=== PATIENT | female | born 1975 | race Caucasian/White ===

== ENCOUNTER 2017-08-07 07:57 | Emergency (ER) | payer BC ==
--- NOTE | 2017-08-07 08:29 | UC ---
Throat Pain/Nasal Gabriel HPI - HPI Summary HPI Summary: Patient presents with complaints of three day onset sore throat. She states she was with her nephew who has been diagnosed with strep throat. - History of Current Complaint Chief Complaint: UCRespiratory Stated Complaint: SORE THROAT Time Seen by Provider: 08/07/17 08:18 Hx Obtained From: Patient Hx Last Menstrual Period: 08/07/17 Onset/Duration: Gradual Onset, Lasting Days Severity: Moderate Pain Intensity: 5 Cough: None Associated Signs & Symptoms: Positive: Sinus Discomfort, Nasal Discharge - Epiglottits Risk Factors Epiglottis Risk Factors: Negative - Allergies/Home Medications Allergies/Adverse Reactions: Allergies Allergy/AdvReac Type Severity Reaction Status Date / Time droperidol AdvReac See Comment Verified 08/07/17 08:14 Home Medications: Home Medications Ibuprofen TAB* [Advil TAB*] 400 mg PO Q6H PRN 08/07/17 [History Confirmed ] Lactobacillus Acidophilus [Probiotic Acidophilus Sup] 1 tab PO DAILY 08/07/17 [ History Confirmed 08/07/17] PMH/Surg Hx/FS Hx/Imm Hx Previously Healthy: Yes - Surgical History Surgical History: Yes Surgery Procedure, Year, and Place: pelvis fx repair 2001, uterine polyp removal - Family History Known Family History: Positive: Hypertension - Social History Occupation: Employed Full-time Lives: Alone Alcohol Use: Rare Substance Use Type: None Smoking Status (MU): Never Smoked Tobacco Review of Systems Constitutional: Negative Skin: Negative Eyes: Negative ENT: Sore Throat, Nasal Discharge, Sinus Congestion Respiratory: Negative Cardiovascular: Negative Gastrointestinal: Negative Genitourinary: Negative Motor: Negative Neurovascular: Negative Musculoskeletal: Negative Neurological: Negative Psychological: Negative Is Patient Immunocompromised?: No All Other Systems Reviewed And Are Negative: Yes Physical Exam Triage Information Reviewed: Yes Appearance: Ill-Appearing Vital Signs: Initial Vital Signs Temp 99.2 F 08/07/17 08:06 Pulse 72 08/07/17 08:06 Resp 14 08/07/17 08:06 BP 109/76 08/07/17 08:06 Pulse Ox 99 08/07/17 08:06 Vital Signs Reviewed: Yes Eye Exam: Normal ENT: Positive: Pharyngeal erythema, Nasal congestion, Uvula midline Neck exam: Normal Neck: Positive: 1 Respiratory Exam: Normal Cardiovascular Exam: Normal Abdominal Exam: Normal Musculoskeletal Exam: Normal Neurological Exam: Normal Skin Exam: Normal Throat Pain/Nasal Course/Dx - Course Course Of Treatment: Patient presents with clinical evidence of srep throat and will be treated with penvk. - Differential Dx/Diagnosis Differential Diagnosis/HQI/PQRI: Pharyngitis, Other - strep throat Provider Diagnoses: strep throat Discharge - Discharge Plan Condition: Stable Disposition: HOME Patient Education Materials: Strep Throat (ED) Referrals: Mary Addison MD [Primary Care Provider] -
== END 2017-08-07 08:38 | disposition home or self-care (01) ==
LOC: UCEAST 07:57
DX: J02.0 Streptococcal pharyngitis (principal)
CPT/HCPCS: 99202; G0463

== ENCOUNTER 2019-02-17 19:20 | Observation (INO) | payer BC ==
[2019-02-17] MEDS ORDERED: Ketorolac INJ* 30 MG/ML 1 ML VIAL IV ONE (19:59)
[2019-02-17] MEDS ORDERED: Ondansetron INJ* 2 MG/ML VIAL IV ONE (19:59)
[2019-02-17] MEDS ORDERED: NS 0.9% 1000 ML** 1,000 ML IV ONE (19:59)
--- NOTE | 2019-02-17 20:01 | ED ---
Abdominal Pain/Female - HPI Summary HPI Summary: This pt is a 43 Y/O F presenting to [facility] with a CC of abdominal pain located in her RUQ and is rated an 8/10 in severity. She states that the onset occurred during the end of her shift at work. She had N/V and diaphoresis while at work which worsened after lunch around 1230. She denies any cough, fevers, urinary symptoms, and diarrhea. She states that eating her lunch increased her severity. She denies any alleviation. She states that she has had similar symptoms 11 years ago. - History of Current Complaint Chief Complaint: EDAbdPain Stated Complaint: ABD PAIN AND NAUSEA PER PT Time Seen by Provider: 02/17/19 19:46 Hx Obtained From: Patient Hx Last Menstrual Period: 08/07/17 Onset/Duration: Sudden Onset, Lasting Hours, Worse Since - 1230 Timing: Constant Severity Initially: Moderate Severity Currently: Severe Pain Intensity: 8 Pain Scale Used: 0-10 Numeric Location: Discrete At: RUQ Radiates: No Aggravating Factor(s): Food Alleviating Factor(s): Nothing Associated Signs and Symptoms: Positive: Diaphoresis, Nausea, Vomiting. Negative: Fever, Cough, Urinary Symptoms, Diarrhea Allergies/Adverse Reactions: Allergies Allergy/AdvReac Type Severity Reaction Status Date / Time droperidol AdvReac See Comment Verified 02/17/19 19:24 PMH/Surg Hx/FS Hx/Imm Hx Previously Healthy: Yes GI History: Denies: Hx Gall Bladder Disease Sensory History: Denies: Hx Contacts or Glasses Opthamlomology History: Denies: Hx Contacts or Glasses - Surgical History Surgical History: Yes Surgery Procedure, Year, and Place: pelvis fx repair 2001, uterine polyp removal Infectious Disease History: Yes Infectious Disease History: Denies: Traveled Outside the [place] in Last 30 Days - Family History Known Family History: Positive: Hypertension - Social History Alcohol Use: Rare Hx Substance Use: No Substance Use Type: Reports: None Hx Tobacco Use: No Smoking Status (MU): Never Smoked Tobacco Review of Systems Positive: Skin Diaphoresis. Negative: Fever Negative: Cough Positive: Abdominal Pain - RUQ, Vomiting, Nausea. Negative: Diarrhea Genitourinary: Negative All Other Systems Reviewed And Are Negative: Yes Physical Exam - Summary Physical Exam Summary: Constitutional: Well-developed, Well-nourished, Alert. (-) Distressed Skin: Warm, Dry HENT: Normocephalic; Atraumatic Eyes: Conjunctiva normal Neck: Musculoskeletal ROM normal neck. (-) JVD, (-) Stridor, (-) Tracheal deviation Cardio: Rhythm regular, rate normal, Heart sounds normal; Intact distal pulses; The pedal pulses are 2+ and symmetric. Radial pulses are 2+ and symmetric. (-) Murmur Pulmonary/Chest wall: Effort normal. (-) Respiratory distress, (-) Wheezes, (-) Rales Abd: Soft, Epigastric and RUQ tenderness, (-) Distension, (-) Guarding, (-) Rebound, positive murphys sign Musculoskeletal: (-) Edema Lymph: (-) Cervical adenopathy Neuro: Alert, Oriented x3 Psych: Mood and affect Normal Triage Information Reviewed: Yes Vital Signs On Initial Exam: Initial Vitals Temp Pulse Resp BP Pulse Ox 97.6 F 79 15 132/84 100 02/17/19 19:23 02/17/19 19:23 02/17/19 19:23 02/17/19 19:23 02/17/19 19:23 Vital Signs Reviewed: Yes Diagnostics - Vital Signs Vital Signs Temp Pulse Resp BP Pulse Ox 02/17/19 19:23 97.6 F 79 15 132/84 100 - Laboratory Result Diagrams: 02/18/19 04:41 02/18/19 04:41 Lab Statement: Any lab studies that have been ordered have been reviewed, and results considered in the medical decision making process. - Ultrasound Gallbladder US Ultrasound Interpretation Completed By: Radiologist Summary of Ultrasound Findings: There are echogenic calculi in the gallbladder lumen consistent with. cholelithiasis with no abnormal gallbladder wall thickening with possible trace pericholecystic fluid and positive sonographic Villegas sign and therefore suspicious for acute cholecystitis. ED Physician has reviewed this report. Re-Evaluation - Re-Evaluation First Eval Re-Evaluation Time: 21:21 Change: Unchanged Comment: Pt states that she still has positive RUQ pain. Abdominal Pain Fem Course/Dx - Course Course Of Treatment: Patient presented today with right upper quadrant pain, chills, vomiting. Patient had blood performed which showed a leukocytosis of 11. Patient had normal LFTs and lipase. Patient had an ultrasound which showed gallstones, a small amount of pericholecystic fluid. Given patient's leukocytosis, positive Villegas sign, gallstones, pericholecystic fluid, surgery was consultation for possible acute cholecystitis. They recommended IV antibiotics and admission to the hospital. - Diagnoses Provider Diagnoses: Acute cholecystitis - Provider Notifications Discussed Care Of Patient With: Dilip Angelo Time Discussed With Above Provider: 21:33 Instructed by Provider To: Admit As Inpatient - Dr. Angelo, surgery, was informed of the pt's current condition. He stated that he will evaluate the pt in the ED and recommended giving the pt ABX treatment until then. Dr. Angelo decided to admit the pt to [facility] at 2200 for further evaluations. Admit/Transition Orders Completed By ED Provider: Yes Discharge ED - Sign-Out/Discharge Documenting (check all that apply): Patient Departure - admitted Patient Received Moderate/Deep Sedation with Procedure: No - Discharge Plan Condition: Good Disposition: ADMITTED TO [facility] - Billing Disposition and Condition Condition: GOOD Disposition: Admitted to [facility] - Attestation Statements Document Initiated by Ranjana: Yes Documenting Scribe: Adarsh Jaime Provider For Whom Ranjana is Documenting (Include Credential): Greg Talamantes MD Scribe Attestation: Adarsh Khan, scribed for Greg Talamantes MD on 02/18/19 at 1009. Scribe Documentation Reviewed: Yes Provider Attestation: The documentation as recorded by the Adarsh macdonald accurately reflects the service I personally performed and the decisions made by me, Greg Talamantes MD Status of Scribe Document: Viewed
[2019-02-17 20:19] LABS: ABS Eosinophils 0.1 10^3/ul (0-0.6); ABS Lymphocytes 1.3 10^3/ul (1.0-4.8); ABS Monocytes 0.5 10^3/ul (0-0.8); ABS Neutrophils 9.2 10^3/ul (1.5-7.7); Eosinophil % 0.6 %; Hematocrit 39 % (35-47); Hemoglobin 13.1 g/dL (12.0-16.0); Lymphocyte % 11.5 %; Mean Corpuscular HGB Conc 34 g/dL (31-36); Mean Corpuscular Hemoglobin 30 pg (27-31); Mean Corpuscular Volume 90 fL (80-97); Mean Platelet Volume 8.7 fL (7.4-10.4); Platelet Count 246 10^3/uL (150-450); Red Cell Distribution Width 13 % (10-15)
[2019-02-17 20:23] LABS: Urine Appearance Clear; Urine Bacteria Absent (Absent); Urine Bilirubin Negative (Negative); Urine Blood Negative (Negative); Urine Color Yellow; Urine Glucose Negative (Negative); Urine Ketones 1+ (Negative); Urine Nitrite Negative (Negative); Urine Protein Negative (Negative); Urine Red Blood Cell Trace(0-2/hpf) (Absent); Urine Specific Gravity 1.023 (1.010-1.030); Urine Squamous Epithelial Cell Present (Absent); Urine Urobilinogen Negative (Negative); Urine White Blood Cell Trace(0-5/hpf) (Absent)
[2019-02-17 20:34] LABS: ALT 8 U/L (7-52); AST 11 U/L (13-39); Albumin 4.5 g/dL (3.2-5.2); Albumin/Globulin Ratio 1.6 (1-3); Alkaline Phosphatase 53 U/L (34-104); Anion Gap 6 mmol/L (2-11); BUN/Creatinine Ratio 21.8 (8-20); Blood Urea Nitrogen 17 mg/dL (6-24); C Reactive Protein < 1.00 mg/L (<8.01); CO2 Carbon Dioxide 27 mmol/L (22-32); Calcium 9.6 mg/dL (8.6-10.3); Chloride 105 mmol/L (101-111); EGFR African American 97.5 (>60); EGFR Non-African American 80.6 (>60); Globulin 2.9 g/dL (2-4); Glucose 125 mg/dL (70-100); Potassium 4.2 mmol/L (3.5-5.0); Sodium 138 mmol/L (135-145); Total Protein 7.4 g/dL (6.4-8.9)
[2019-02-17 20:39] LABS: HCG Pregnancy < 0.60 mIU/mL
[2019-02-17] MEDS ORDERED: Piperacillin/Tazobac ADVAN(*) 3.375 GM in NS 0.9% 100 ML* 100 ML IVPB ONE (21:32)
[2019-02-17] MEDS ORDERED: Ondansetron INJ* 2 MG/ML VIAL IV PRN (22:04)
[2019-02-17] MEDS ORDERED: Ketorolac INJ* 30 MG/ML 1 ML VIAL IV PRN (22:04)
[2019-02-17] MEDS ORDERED: NS 0.9% 1000 ML** 1,000 ML IV SCH (22:15)
--- NOTE | 2019-02-18 00:57 | HP ---
CC: [facility]; Dr. Mary Addison, [facility]* HISTORY AND PHYSICAL: DATE OF ADMISSION: 02/17/19 CHIEF COMPLAINT: Right upper quadrant abdominal pain and gallstones. HISTORY OF PRESENT ILLNESS: Ms. Anastasiya Miramontes is a healthy 43-year-old woman, who around 1:30 this afternoon after eating rather a large lunch developed some severe epigastric right upper quadrant abdominal pain, radiating around to the right flank area. This was associated with some nausea without vomiting. She has some diaphoresis as well, but no vomiting. She has no known jaundice and she had no true shakes or chills. She did not feel that she had a fever. This pain worsened and she presented to the emergency room several hours later. She was noted to be afebrile with essentially stable vital signs. She was noted to have tenderness in the epigastrium and right upper quadrant, but no generalized abdominal discomfort. Laboratory values include a white blood cell count of 11,000. Electrolytes, BUN and creatinine were all within normal limits. Liver transaminases, C- reactive protein, and lipase were all within normal limits. She underwent an ultrasound of the gallbladder. I did review these images. This showed multiple echogenic calculus in the gallbladder consistent with cholelithiasis, but no gallbladder wall thickening. There was some possible trace pericholecystic fluid and a positive sonographic Villegas's sign. This was felt suspicious for acute cholecystitis. Her pain has persisted despite receiving Toradol. She refused any narcotics. Surgical consultation was obtained. PAST MEDICAL HISTORY: Factor V Leiden deficiency, penetrance unknown. She is not on any anticoagulation, has not formerly seen a forester aide in many years. PAST SURGICAL HISTORY: 1. Pelvic fracture repair in 2001. 2. Uterine polyp removal laparoscopically. MEDICATIONS: Unremarkable. SOCIAL HISTORY: She denies use of alcohol or tobacco. 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 REVIEW OF SYSTEMS: Cerebrovascular: No dizziness or visual disturbances. Cardiovascular: No chest pain, shortness of breath, or pulmonary issues. Cardiac: No chest pain. GI: No chronic abdominal discomfort. She has not had pain that had been typical of this in the past. She never had an ultrasound before. : No urgency or hematuria. PHYSICAL EXAMINATION GENERAL: She is a well-developed, slender female appears to be in no apparent distress. She is awake, alert, conversant, and very pleasant. VITAL SIGNS: She is afebrile. Pulse 85, blood pressure 118/77. HEENT: Sclerae anicteric. Her oral mucosa is dry. LUNGS: Clear to auscultation with normal respiratory effort. HEART: Regular rate and rhythm without murmur, rubs, or gallops. ABDOMEN: Soft and nondistended. She has some very difficult to see laparoscopic incision in the lower abdomen. There are no hernias. She has tenderness in the epigastrium and right upper quadrant with some voluntary guarding, but no peritoneal irritation. There is no generalized abdominal pain. PSYCHIATRIC: She is awake, alert and oriented x3. She has normal judgment and insight. IMPRESSION: Persistent epigastric and right upper quadrant abdominal pain with a mild elevation of white blood cell count. An ultrasound confirms gallstones with possibilities of pericholecystic fluid. Her pain is persistent now for 9 or 10 hours and not improving with nonsteroidal pain medicine. PLAN: At this point, it is difficult to determine if this is developing into acute calculus cholecystitis or more prolonged episode of biliary colic but the possibility of fluid around the gallbladder is somewhat worrisome. I discussed options with her including admission to the hospital with initiation of IV antibiotics and if her pain persists, we will plan laparoscopic cholecystectomy tomorrow. She would like to try to avoid surgery at this time, which is certainly understandable, but I think discharging home on oral antibiotics with her level of discomfort and its duration will result in her returning to the emergency room in the next 24 to 48 hours with a more progressed presentation of acute cholecystitis. Through our discussion, plan will be: 1. Admission to the surgical floor here. 2. I will start IV Zosyn and IV fluids. 3. We will keep her n.p.o. after midnight. 4. Laboratory values will be repeated in the morning. If her pain is resolved and her white blood cell count is normalized and she has no fever, we will consider discharge on oral antibiotics with close followup in the office. She is comfortable with this plan and she will be allowed clear liquids this evening. [id number]/[facility] #: [id number] [facility]ITAL[facility]
[2019-02-18] MEDS: Piperacillin/Tazobactam VIAL*) 3.375 GM in NS 0.9% 100 ML* 100 ML IVPB SCH ×2 (02:11→10:53)
[2019-02-18 05:19] LABS: ABS Eosinophils 0.1 10^3/ul (0-0.6); ABS Lymphocytes 1.9 10^3/ul (1.0-4.8); ABS Monocytes 0.5 10^3/ul (0-0.8); ABS Neutrophils 7.1 10^3/ul (1.5-7.7); Eosinophil % 1.1 %; Hematocrit 36 % (35-47); Hemoglobin 12.6 g/dL (12.0-16.0); Lymphocyte % 19.9 %; Mean Corpuscular HGB Conc 35 g/dL (31-36); Mean Corpuscular Hemoglobin 31 pg (27-31); Mean Corpuscular Volume 89 fL (80-97); Mean Platelet Volume 8.6 fL (7.4-10.4); Nucleated Red Blood Cells % 0.1; Platelet Count 236 10^3/uL (150-450); Red Blood Count 4.05 10^6 /uL (3.70-4.87); Red Cell Distribution Width 13 % (10-15); White Blood Count 9.6 10^3/uL (3.5-10.8)
[2019-02-18 05:40] LABS: ALT 6 U/L (7-52); AST 10 U/L (13-39); Albumin 3.6 g/dL (3.2-5.2); Albumin/Globulin Ratio 1.6 (1-3); Alkaline Phosphatase 40 U/L (34-104); Anion Gap 5 mmol/L (2-11); BUN/Creatinine Ratio 15.6 (8-20); Blood Urea Nitrogen 12 mg/dL (6-24); C Reactive Protein < 1.00 mg/L (<8.01); CO2 Carbon Dioxide 26 mmol/L (22-32); Calcium 9.1 mg/dL (8.6-10.3); Chloride 108 mmol/L (101-111); EGFR Non-African American 81.8 (>60); Globulin 2.3 g/dL (2-4); Glucose 89 mg/dL (70-100); Indirect Bilirubin 0.7 mg/dL (0.3-1.0); Potassium 3.8 mmol/L (3.5-5.0); Sodium 139 mmol/L (135-145); Total Protein 5.9 g/dL (6.4-8.9)
[2019-02-18 09:05] VITALS: BP 107/61
--- NOTE | 2019-02-18 09:05 | PN ---
Progress Note - Progress Note Date of Service: 02/18/19 SOAP: Subjective: Feels much better this morning Very mild pain RUQ-no back pain, no N/V Has appetite Took no pain meds-only received the one dose of Toradol in the ER Ambulating Objective: Temp Pulse Resp BP Pulse Ox 99 F 59 18 89/51 98 02/18/19 03:27 02/18/19 03:27 02/18/19 03:27 02/18/19 03:27 02/18/19 03:27 PEX: Comfortable Lungs are clear Cor is RRR Abd is soft and non-distended. Bowel sounds are present. Very mild tenderness on deep palpation RUQ-no guarding, rebound or mass. Ext without edema Laboratory Results - last 24 hr 02/17/19 02/17/19 02/17/19 20:00 20:02 20:02 WBC 11.0 H RBC 4.30 Hgb 13.1 Hct 39 MCV 90 MCH 30 MCHC 34 RDW 13 Plt Count 246 MPV 8.7 Neut % (Auto) 83.4 Lymph % (Auto) 11.5 Harris % (Auto) 4.3 Eos % (Auto) 0.6 Baso % (Auto) 0.2 Absolute Neuts (auto) 9.2 H Absolute Lymphs (auto) 1.3 Absolute Monos (auto) 0.5 Absolute Eos (auto) 0.1 Absolute Basos (auto) 0.0 Absolute Nucleated RBC 0.0 Nucleated RBC % 0.0 Sodium 138 Potassium 4.2 Chloride 105 Carbon Dioxide 27 Anion Gap 6 BUN 17 Creatinine 0.78 Est GFR ( Amer) 97.5 Est GFR (Non-Af Amer) 80.6 BUN/Creatinine Ratio 21.8 H Glucose 125 H Calcium 9.6 Total Bilirubin 0.50 Direct Bilirubin Indirect Bilirubin AST 11 L ALT 8 Alkaline Phosphatase 53 C-Reactive Protein < 1.00 Total Protein 7.4 Albumin 4.5 Globulin 2.9 Albumin/Globulin Ratio 1.6 Lipase 16 Beta HCG, Quant < 0.60 Urine Color Yellow Urine Appearance Clear Urine pH 5.0 Ur Specific [place] 1.023 Urine Protein Negative Urine Ketones 1+ A Urine Blood Negative Urine Nitrate Negative Urine Bilirubin Negative Urine Urobilinogen Negative Ur Leukocyte Esterase Trace A Urine WBC (Auto) Trace(0-5/hpf) Urine RBC (Auto) Trace(0-2/hpf) Ur Squamous Epith Cells Present A Urine Bacteria Absent Urine Glucose Negative 02/18/19 02/18/19 04:41 04:41 WBC 9.6 RBC 4.05 Hgb 12.6 Hct 36 MCV 89 MCH 31 MCHC 35 RDW 13 Plt Count 236 MPV 8.6 Neut % (Auto) 73.5 Lymph % (Auto) 19.9 Harris % (Auto) 5.1 Eos % (Auto) 1.1 Baso % (Auto) 0.4 Absolute Neuts (auto) 7.1 Absolute Lymphs (auto) 1.9 Absolute Monos (auto) 0.5 Absolute Eos (auto) 0.1 Absolute Basos (auto) 0.0 Absolute Nucleated RBC 0.0 Nucleated RBC % 0.1 Sodium 139 Potassium 3.8 Chloride 108 Carbon Dioxide 26 Anion Gap 5 BUN 12 Creatinine 0.77 Est GFR ( Amer) 99.0 Est GFR (Non-Af Amer) 81.8 BUN/Creatinine Ratio 15.6 Glucose 89 Calcium 9.1 Total Bilirubin 0.80 Direct Bilirubin 0.10 Indirect Bilirubin 0.7 AST 10 L ALT 6 L Alkaline Phosphatase 40 C-Reactive Protein < 1.00 Total Protein 5.9 L Albumin 3.6 Globulin 2.3 Albumin/Globulin Ratio 1.6 Lipase 14 Beta HCG, Quant Urine Color Urine Appearance Urine pH Ur Specific [place] Urine Protein Urine Ketones Urine Blood Urine Nitrate Urine Bilirubin Urine Urobilinogen Ur Leukocyte Esterase Urine WBC (Auto) Urine RBC (Auto) Ur Squamous Epith Cells Urine Bacteria Urine Glucose Assessment: Gallstones, right upper abdominal pain-much improved, requiring no analgesia. On Zosyn Normal WBC, chem labs, no fever I'm not certain if her pain due to biliary colic v acute cholecystitis ( radiologist reads US as ??? small amount of fluid, no stone in neck, no wall thickening). All discussed with patient-she would like to avoid surgery at this point- discussed non-operative management Plan: Start clear liquids this morning and see how she does. If tolerates without pain , will d/c home on oral antibiotics with office follow up and discussion of interval cholecystectomy. If pain worsens or returns in the next 24-28 hours she will return to the ER for evaluation. If does not tolerate fluids this morning and has increased pain, will proceed with cholecystectomy today.
--- NOTE | 2019-02-24 15:39 | DS ---
CC: [facility]; Dr. Mary Addison, [facility] * DISCHARGE SUMMARY: DATE OF ADMISSION: 02/17/19 DATE OF DISCHARGE: 02/18/19 PRINCIPAL DIAGNOSES: 1. Cholelithiasis. 2. Right upper quadrant abdominal pain. PROCEDURE PERFORMED: None. CONDITION ON DISCHARGE: Stable. MEDICATIONS ON DISCHARGE: Augmentin 875 mg p.o. b.i.d. for 5 days. FOLLOWUP: The patient was instructed to call the [facility] surgical office on 02/21/19, to arrange a followup office visit to discuss cholecystectomy. She was instructed to call sooner if she develops fever, recurrent abdominal pain, nausea, vomiting, back discomfort or have other questions or concerns. BRIEF HISTORY: Ms. Anastasiya Miramontes is a 43-year-old woman who presented to the emergency room with about 12 to 16 hours of severe epigastric and right upper quadrant abdominal discomfort. She never had discomfort such as this in the past. She was noted to be afebrile; however, had an elevated white blood cell count of 11,000. Her electrolytes, BUN and creatinine as well as liver transaminases, total bilirubin and C-reactive protein were normal. Her test was unremarkable. Lipase was unremarkable. She underwent an ultrasound of her gallbladder in the emergency room. I did review these images. These showed some echogenic calculi in the gallbladder lumen with no abnormal gallbladder wall thickening, but a possibility of some trace pericholecystic fluid and a positive sonographic Villegas's sign. HOSPITAL COURSE: The patient was seen in surgical consultation in the emergency room. Her pain persisted after receiving some IV Toradol. She had refused narcotics. Despite the fact that she was afebrile and had an essentially normal white blood cell count, she had persistent discomfort and with a concern of possible fluid around the gallbladder suggestive of acute calculous cholecystitis, the decision was made to admit the patient that evening with initiation of IV antibiotics and careful observation. I had a discussion of laparoscopic cholecystectomy with her and I did recommend that she undergo a laparoscopic cholecystectomy as I felt that with the duration of her symptoms that she most likely had acute calculous cholecystitis and would benefit from an early cholecystectomy rather than waiting for several days or considering an interval cholecystectomy in the next several weeks. On hospital day #1, she remained afebrile. Her white blood cell count returned to normal. Her pain had essentially resolved and she tolerated liquids. After discussion once again with the patient regarding management, she decided that she would prefer to be discharged home and avoid surgery. She was discharged home with Augmentin and the above instructions. [id number]/[facility] #: [id number] EDMAR
== END 2019-02-18 12:30 | disposition home or self-care (01) ==
LOC: ED 19:20 → SSU 22:04
PROVIDERS: ADMIT Surgery; ATTEND Surgery
DX: K80.18 Calculus of gallbladder with other cholecystitis without obstruction (principal); R10.11 Right upper quadrant pain; R11.2 Nausea with vomiting, unspecified; K81.0 Acute cholecystitis; D72.829 Elevated white blood cell count, unspecified
CPT/HCPCS: 36415; 76705; 80048; 80053; 80076; 81003; 81015; 83690; 84702; 85025; 86140; 87086; 96365; 96366; 96375; 99284; G0378; J1885; J2405; J2543

== ENCOUNTER 2019-04-25 00:19 | Emergency (ER) | payer BC ==
--- OUTSIDE RECORDS SUMMARY | 2019-04-25 00:33 | XMS REPORT | Continuity of Care Document ---
:1975 External Reference #:[id number] Author Name Wilner Ladd MD, FACS (transmitted by agent of provider Jacqueline Stephenson) Address [address] [place] [address] [place] [address] Care Team Providers Name Role Phone Mary Addison MD - Family Care Team Information Glaze Wiper [phone] Medicine Problems Description No Information Available Social History Type Date Description Comments Sex Unknown ETOH Use Rarely consumes alcohol Tobacco Use Start: Unknown Patient has never smoked Recreational Drug Use Denies Drug Use Smoking Status Reviewed: 03/06/19 Patient has never smoked Exercise Type/Frequency Exercises sporadically Allergies, Adverse Reactions, Alerts Active Allergies Reaction Severity Comments Date Droperidol 03/03/2019 Medications Description No Active Medications Immunizations Description No Information Available Vital Signs Date Vital Result Comment 03/06/2019 2:57pm Height 61.5 inches 5'1.50" Weight 115.00 lb Heart Rate 68 /min BP Systolic 114 mmHg BP Diastolic 72 mmHg Respiratory Rate 16 /min Body Temperature 98.8 F BMI (Body Mass Index) 21.4 kg/m2 Results Description No Information Available Procedures Description No Information Available Medical Devices Description No Information Available Encounters Type Date Location Provider Dx Diagnosis Office Visit 02/18/2019 Surgical Dilip [email or web address] [facility] gallbladder w/o cholecystitis w/o obstruction Office Visit 02/17/2019 Akbar [email or web address] [facility] MD gallbladder w/o cholecystitis w/o obstruction Assessments Date Code Description Provider 03/06/2019 K80.20 [facility] gallbladder without Wilner Ladd MD, FACS cholecystitis without obstruction 02/18/2019 K80.20 [facility] of gallbladder without Dilip Angelo MD cholecystitis without obstruction 02/18/2019 K80.20 [facility] of gallbladder without Dilip Angelo MD cholecystitis without obstruction 02/18/2019 R10.11 Right upper quadrant pain Dilip Angelo MD 02/17/2019 K80.20 [facility] gallbladder without Dilip Angelo MD cholecystitis without obstruction Plan of Treatment Future Appointment(s):06/07/2019 9:30 am - Lorrie Chang NP at [facility]05/12/2019 8:30 am - Wilner Ladd MD, FACS at [facility]05/30/2019 7:30 am - Lorrie Chang NP at [facility]05/30/2019 7:30 am - Wilner Ladd MD, FACS at [facility]03/06/2019 - Wilner Ladd MD, [id number] [facility] of gallbladder without cholecystitis without obstructionRecommendations: laparoscopic cholecystectomy Functional Status Description No Information Available Mental Status Description No Information Available Referrals Description No Information Available
--- NOTE | 2019-04-25 02:01 | ED ---
Abdominal Pain/Female - HPI Summary HPI Summary: The patient is a 43 y/o F presenting to [facility] with a chief complaint of sudden onset sharp RUQ pain tonight. She reports that she was recently diagnosed with cholelithiasis, and her symptoms now feel similar to that. She is experiencing RUQ pain that radiates into the back, chest pressure, and nausea with the pain. She denies any fever or vomiting. Currently, the pain is localized and rated 5/ 10 in severity, which is improved since onset. She notes that the last thing she ate was rice. PMHx: cholelithiasis. Nonsmoker, rare EtOH, no substance use. Medications reviewed. Allergies noted. - History of Current Complaint Chief Complaint: EDChestPainROMI Stated Complaint: ABD PAIN PER PT Time Seen by Provider: 04/25/19 01:44 Hx Obtained From: Patient Hx Last Menstrual Period: 08/07/17 Onset/Duration: Sudden Onset, Lasting Hours, Still Present Timing: Hours Severity Initially: Severe Severity Currently: Moderate Pain Intensity: 5 Pain Scale Used: 0-10 Numeric Location: Discrete At: RUQ Radiates: Yes Radiates to: Back Character: Sharp Aggravating Factor(s): Nothing Alleviating Factor(s): Nothing Associated Signs and Symptoms: Positive: Chest Pain - pressure, Nausea. 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 GI History: Reports: Hx Gall Bladder Disease Musculoskeletal History: Reports: Hx Back Problems Sensory History: Denies: Hx Contacts or Glasses, Hx Hearing Aid Opthamlomology History: Denies: Hx Contacts or Glasses - Surgical History Surgical History: Yes Surgery Procedure, Year, and Place: pelvis fx repair 2001, uterine polyp removal Hx Anesthesia Reactions: No Infectious Disease History: No Infectious Disease History: Denies: Traveled Outside the [place] in Last 30 Days - Family History Known Family History: Positive: Hypertension - Social History Alcohol Use: Rare Hx Substance Use: No Substance Use Type: Reports: None Hx Tobacco Use: No Smoking Status (MU): Never Smoked Tobacco Review of Systems - ROS Summary Review of Systems Summary: Home Medications Medication Instructions Recorded Confirmed Type Amoxicillin/Clavulanate TAB* 875 mg PO BID 5 Days #10 tab 02/18/19 Rx [Augmentin TAB 875*] Negative: Fever Positive: Chest Pain - pressure with pain Positive: Abdominal Pain - RUQ, Nausea - with abd pain. Negative: Vomiting All Other Systems Reviewed And Are Negative: Yes Physical Exam - Summary Physical Exam Summary: General: Well-developed, Well-nourished female. No acute distress. HEENT: Normocephalic, Atraumatic. Eyes: Conjuctiva normal, PERRL. Ears: TMs within normal limits. Nares: (-) discharge, (-) erythema. Oropharynx: Clear, mucous membranes moist, (-) exudates. Neck: Soft, FROM, (-) lymphadenopathy, (-) thyromegaly, (-) JVD. Cardiovascular: Normal sinus rhythm, (-) murmur. Lungs: Clear to auscultation bilaterally (-) wheezes, (-) rales, (-) rhonchi. Abdomen: Soft, mild RUQ tenderness, non-distended, (-) organomegaly, normal bowel sounds. Back: (-) CVA tenderness Extremities: No edema. Skin: Warm, dry, (-) rash. Neuro: Alert and oriented x3, no focal deficits. Psychiatric: Mood normal, affect normal. Triage Information Reviewed: Yes Vital Signs On Initial Exam: Initial Vitals Temp Pulse Resp BP Pulse Ox 96.8 F 72 15 116/79 100 04/25/19 00:20 04/25/19 00:20 04/25/19 00:20 04/25/19 00:20 04/25/19 00:20 Vital Signs Reviewed: Yes Procedures - Sedation Patient Received Moderate/Deep Sedation with Procedure: No Diagnostics - Vital Signs Vital Signs Temp Pulse Resp BP Pulse Ox 04/25/19 00:20 96.8 F 72 15 116/79 100 - Laboratory Result Diagrams: 04/25/19 02:20 04/25/19 02:20 Lab Statement: Any lab studies that have been ordered have been reviewed, and results considered in the medical decision making process. - CT Abd/Pel CT CT Interpretation Completed By: Radiologist Summary of CT Findings: Impression: 1. Multiple small stones in the dependent portion of the gallbladder. No gallbladder wall thickening. No distention of the common bile duct. 2. Old fractures involving the pelvis treated surgically. Surgical construct is intact. ED physician has reviewed this imaging report. - EKG 0026 Cardiac Rate: NL - 61 BPM EKG Rhythm: Sinus Rhythm Summary of EKG Findings: EKG at 0026 reveals normal sinus rhythm with rate of 61 BPM, no acute changes, no ischemic changes. This EKG was reviewed and interpreted by Dr. Pleitez. Re-Evaluation - Re-Evaluation First Eval Re-Evaluation Time: 04:08 Change: Improved Comment: Her pain has improved. We discussed all results. We will go forward with a CT. Second Eval Re-Evaluation Time: 06:00 Change: Unchanged Comment: She is concerned for her pain and would like surgical consultation with Dr. Ladd, who she has been speaking with since her diagnosis. Abdominal Pain Fem Course/Dx - Course Course Of Treatment: 43-year-old female with biliary colic. Patient states she was here last month with similar symptoms. Had acute cholecystitis at that time. He elected to hold off and schedule cholecystectomy. Patient states she is scheduled for May [address] Ladd. Patient had some improvement with Toradol and IV fluids. White count is elevated. LFTs are normal. Patient states she is very reluctant to go home with as bad as her pain has been tonight. She states she is afraid the pain will return. Would like surgical consult at this time. Patient's CT scan demonstrates no signs or symptoms of acute cholecystitis. She states Dr. Ladd says OR hours today. Would like to consult with him. Patient signed out at change of shift to oncoming physician. - Diagnoses Provider Diagnoses: Biliary colic Discharge ED - Sign-Out/Discharge Documenting (check all that apply): Sign-Out Patient Signing out patient TO: Allyn Norman - Patient is a sign-out to Dr. Allyn Norman MD, at 0700 on 04/25/2019, pending consultation with surgery and disposition. - Discharge Plan Condition: Stable Disposition: HOME Patient Education Materials: Biliary Colic (ED) Referrals: Mary Addison MD [Primary Care Provider] - 3 Days Additional Instructions: Please follow up with your primary care physician within three days. Please return to ED for any new or worsening symptoms. - Billing Disposition and Condition Condition: STABLE Disposition: Home - Attestation Statements Document Initiated by Scribe: Yes Documenting Scribe: Olena Cardozo Provider For Whom Ranjana is Documenting (Include Credential): Dr. Razia Pleitez MD Scribe Attestation: Olena Khan, scribed for Dr. Razia Pleitez MD on 04/25/19 at 0609. Scribe Documentation Reviewed: Yes Provider Attestation: The documentation as recorded by the Olena macdonald accurately reflects the service I personally performed and the decisions made by me, Dr. Razia Pleitez MD Status of Scribe Document: Viewed
[2019-04-25] MEDS ORDERED: Ondansetron INJ* 2 MG/ML VIAL IV ONE (02:02)
[2019-04-25] MEDS ORDERED: NS 0.9% 1000 ML** 1,000 ML IV ONE (02:02)
[2019-04-25 02:31] LABS: ABS Eosinophils 0.1 10^3/ul (0-0.6); ABS Lymphocytes 1.1 10^3/ul (1.0-4.8); ABS Monocytes 0.6 10^3/ul (0-0.8); ABS Neutrophils 10.6 10^3/ul (1.5-7.7); Eosinophil % 0.5 %; Hematocrit 38 % (35-47); Lymphocyte % 9.1 %; Mean Corpuscular HGB Conc 34 g/dL (31-36); Mean Corpuscular Hemoglobin 31 pg (27-31); Mean Corpuscular Volume 90 fL (80-97); Mean Platelet Volume 8.7 fL (7.4-10.4); Platelet Count 211 10^3/uL (150-450); Red Blood Count 4.24 10^6 /uL (3.70-4.87); Red Cell Distribution Width 13 % (10-15); White Blood Count 12.5 10^3/uL (3.5-10.8)
[2019-04-25 02:35] LABS: INR 1.14 (0.82-1.09)
[2019-04-25 02:46] LABS: ALT 18 U/L (7-52); AST 35 U/L (13-39); Albumin 4.2 g/dL (3.2-5.2); Albumin/Globulin Ratio 1.6 (1-3); Alkaline Phosphatase 50 U/L (34-104); Anion Gap 6 mmol/L (2-11); BUN/Creatinine Ratio 19.3 (8-20); Blood Urea Nitrogen 17 mg/dL (6-24); CO2 Carbon Dioxide 27 mmol/L (22-32); Chloride 105 mmol/L (101-111); EGFR African American 84.9 (>60); EGFR Non-African American 70.1 (>60); Globulin 2.6 g/dL (2-4); Glucose 112 mg/dL (70-100); Potassium 4.3 mmol/L (3.5-5.0); Sodium 138 mmol/L (135-145); Total Protein 6.8 g/dL (6.4-8.9)
[2019-04-25 02:54] LABS: HCG Pregnancy < 0.60 mIU/mL
[2019-04-25] MEDS ORDERED: Ketorolac INJ* 30 MG/ML 1 ML VIAL IV PUSH ONE (03:03)
[2019-04-25 03:34] LABS: Urine Appearance Clear; Urine Bacteria Absent (Absent); Urine Bilirubin Negative (Negative); Urine Blood 1+ (Negative); Urine Color Yellow; Urine Glucose Negative (Negative); Urine Ketones Negative (Negative); Urine Nitrite Negative (Negative); Urine Protein Negative (Negative); Urine Red Blood Cell Trace(0-2/hpf) (Absent); Urine Specific Gravity 1.013 (1.010-1.030); Urine Squamous Epithelial Cell Present (Absent); Urine Urobilinogen Negative (Negative); Urine White Blood Cell Trace(0-5/hpf) (Absent)
[2019-04-25] MEDS ORDERED: Iohexol 300* (CONTRAST) 10 ML SDV IV ONE (04:22)
--- NOTE | 2019-04-25 07:08 | ED ---
Progress - Progress Note Progress Note: Patient is a sign out at 07:00 on 04/25/[address] Razia Pleitez MD to Dr. Allyn Norman MD at shift change, pending surgery consult and disposition. At 07:14, Dr. Ladd is going to come see the patient. He will operate on her tmrw, patient in agreement Patient will be discharged with a diagnosis of biliary colic. Re-Evaluation - Re-Evaluation First Eval Re-Evaluation Time: 04:08 Change: Improved Comment: Her pain has improved. We discussed all results. We will go forward with a CT. Second Eval Re-Evaluation Time: 06:00 Change: Unchanged Comment: She is concerned for her pain and would like surgical consultation with Dr. Ladd, who she has been speaking with since her diagnosis. Third Re-Evaluation Time: 07:40 Change: Unchanged Comment: Patient will be discharged with a diagnosis of biliary colic. Course/Dx - Course Course Of Treatment: 43-year-old female with biliary colic. Patient states she was here last month with similar symptoms. Had acute cholecystitis at that time. He elected to hold off and schedule cholecystectomy. Patient states she is scheduled for May [address] Ladd. Patient had some improvement with Toradol and IV fluids. White count is elevated. LFTs are normal. Patient states she is very reluctant to go home with as bad as her pain has been tonight. She states she is afraid the pain will return. Would like surgical consult at this time. Patient's CT scan demonstrates no signs or symptoms of acute cholecystitis. She states Dr. Ladd says OR hours today. Would like to consult with him. Patient signed out at change of shift to oncoming physician. - Diagnoses Provider Diagnoses: Biliary colic - Provider Notifications Discussed Care Of Patient With: Wilner Ladd - At 07:14, Dr. Wilner Ladd is going to come see the patient. Time Discussed With Above Provider: 07:14 Discharge ED - Sign-Out/Discharge Documenting (check all that apply): Patient Departure - Discharge, Receiving Sign-Out Receiving patient FROM: Razia Pleitez - 07:00 on 04/25/19 - Discharge Plan Condition: Stable Disposition: HOME Patient Education Materials: Biliary Colic (ED) Referrals: Mary Addison MD [Primary Care Provider] - 3 Days Additional Instructions: You were seen in the ER for abdominal pain. You have biliary colic. Please follow up w Dr. Ladd tomorrow for your surgery. Please follow up with your primary care physician within three days. Please return to ED for any new or worsening symptoms including fevers, worsening pain or if you are concerned. - Billing Disposition and Condition Condition: STABLE Disposition: Home - Attestation Statements Document Initiated by Ranjana: Yes Documenting Scribe: Renetta Hooks Provider For Whom Ranjana is Documenting (Include Credential): Allyn Norman MD Scribe Attestation: IRenetta, scribed for Allyn Norman MD on 04/25/19 at 0747. Scribe Documentation Reviewed: Yes Provider Attestation: The documentation as recorded by the Renetta macdonald accurately reflects the service I personally performed and the decisions made by , Allyn Norman MD Status of Scribe Document: Viewed
--- NOTE | 2019-04-25 07:56 | CONSULT ---
Consult Consult: H&P CC: biliary colic HPI: 43 yo F with known gallstones and biliary colic presented to the ED last PM with RUQ pain that radiates into the back, chest pressure, and nausea with the pain. She denies any fever or vomiting. She took Advil without relief. She states she had last eaten [place] rice and her symptoms were severe for 30 minutes then abated but returned again while she was in the waiting room. She improved with Toradol and Zofran. Sh has surgery scheduled for but does not think she can wait that long and requests an earlier surgery. 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 PE Vital Signs Temp 96.8 F 04/25/19 00:20 Pulse 71 04/25/19 07:00 Resp 18 04/25/19 07:00 BP 89/57 04/25/19 06:45 Pulse Ox 100 04/25/19 07:00 Gen: NAD HEENT: anicteric; glasses; MMM; NCAT Lungs: CTA B Heart: reg s1s2 Abd: No scars; +BS; soft; no Villegas sx; min tender Ext: warm Intake & Output 04/24/19 04/25/19 04/25/19 18:59 06:59 18:59 Intake Total 1000 Balance 1000 Weight 114 lb Intake: IV Fluids 1000 Laboratory Results - last 24 hr 04/25/19 04/25/19 04/25/19 02:20 02:20 02:20 WBC 12.5 H RBC 4.24 Hgb 13.0 Hct 38 MCV 90 MCH 31 MCHC 34 RDW 13 Plt Count 211 MPV 8.7 Neut % (Auto) 85.1 Lymph % (Auto) 9.1 [place] % (Auto) 5.1 Eos % (Auto) 0.5 Baso % (Auto) 0.2 Absolute Neuts (auto) 10.6 H Absolute Lymphs (auto) 1.1 Absolute Monos (auto) 0.6 Absolute Eos (auto) 0.1 Absolute Basos (auto) 0.0 Absolute Nucleated RBC 0.0 Nucleated RBC % 0.0 INR (Anticoag Therapy) Sodium 138 Potassium 4.3 Chloride 105 Carbon Dioxide 27 Anion Gap 6 BUN 17 Creatinine 0.88 Est GFR ( Amer) 84.9 Est GFR (Non-Af Amer) 70.1 BUN/Creatinine Ratio 19.3 Glucose 112 H Lactic Acid 0.9 Calcium 9.0 Total Bilirubin 0.50 AST 35 ALT 18 Alkaline Phosphatase 50 Total Protein 6.8 Albumin 4.2 Globulin 2.6 Albumin/Globulin Ratio 1.6 Lipase 20 Beta HCG, Quant < 0.60 Urine Color Urine Appearance Urine pH Ur Specific [place] Urine Protein Urine Ketones Urine Blood Urine Nitrate Urine Bilirubin Urine Urobilinogen Ur Leukocyte Esterase Urine WBC (Auto) Urine RBC (Auto) Ur Squamous Epith Cells Urine Bacteria Urine Glucose 04/25/19 04/25/19 02:20 03:10 WBC RBC Hgb Hct MCV MCH MCHC RDW Plt Count MPV Neut % (Auto) Lymph % (Auto) [place] % (Auto) Eos % (Auto) Baso % (Auto) Absolute Neuts (auto) Absolute Lymphs (auto) Absolute Monos (auto) Absolute Eos (auto) Absolute Basos (auto) Absolute Nucleated RBC Nucleated RBC % INR (Anticoag Therapy) 1.14 H Sodium Potassium Chloride Carbon Dioxide Anion Gap BUN Creatinine Est GFR ( Amer) Est GFR (Non-Af Amer) BUN/Creatinine Ratio Glucose Lactic Acid Calcium Total Bilirubin AST ALT Alkaline Phosphatase Total Protein Albumin Globulin Albumin/Globulin Ratio Lipase Beta HCG, Quant Urine Color Yellow Urine Appearance Clear Urine pH 6.0 Ur Specific [place] 1.013 Urine Protein Negative Urine Ketones Negative Urine Blood 1+ A Urine Nitrate Negative Urine Bilirubin Negative Urine Urobilinogen Negative Ur Leukocyte Esterase Negative Urine WBC (Auto) Trace(0-5/hpf) Urine RBC (Auto) Trace(0-2/hpf) Ur Squamous Epith Cells Present A Urine Bacteria Absent Urine Glucose Negative CT images reviewed. Cholelithiasis present. No GB wallthickening or fluid. Impression: Symptomatic cholelithiasis. Plan: D/w pt. Will plan on lap cholecystectomy on 04/26/19 in am.
[2019-04-25 08:07] VITALS: BP 114/75
[2019-04-25] MEDS ORDERED: Ketorolac INJ* 30 MG/ML 1 ML VIAL IV ONE (08:10)
== END 2019-04-25 08:14 | disposition home or self-care (01) ==
LOC: ED 00:19
DX: K80.50 Calculus of bile duct without cholangitis or cholecystitis without obstruction (principal); R07.89 Other chest pain; R11.0 Nausea; D68.52 Prothrombin gene mutation; D68.2 Hereditary deficiency of other clotting factors; Z88.8 Allergy status to other drugs, medicaments and biological substances
CPT/HCPCS: 36415; 74177; 80053; 81003; 81015; 83605; 83690; 84702; 85025; 85610; 87086; 93005; 96361; 96374; 96375; 96376; 99283; J1885; J2405; Q9967

== ENCOUNTER → 2019-04-26 07:46 | Day surgery (SDC) | payer BC ==
[~2019-04-26 07:46] MED LIST: Buffered Lidocaine 1% SYRIN* 1 ML/SYRINGE INTRADERM ONE; Bupivacaine 0.25% SDV PF* 10 ML VIAL INJ ONE; Cisatracurium* 2 MG/ML MDV 5 ML ONE; Dexamethasone IV* 4 MG/ML 1 ML (4 MG) ONE; DiMENhydriNATE IV* 50 MG/ML VIAL IV PUSH PRN; EPHEDrine (Pressors)* 50 MG/ML VIAL ONE; Famotidine IV* 10 MG/ML 2 ML (20 mg) IV ONE; Famotidine IV* 10 MG/ML 2 ML (20 mg) ONE; Glycopyrrolate IV* 0.2 MG/ML 1 ML VIAL ONE; Heparin VIAL(*) 5000 UNITS/ML VIAL (FIVE THOUSAND) ONE; Ketorolac INJ* 30 MG/ML 1 ML VIAL ONE; Lidocaine 2% PF * 5 ML VIAL ONE; Midazolam* 1 MG/ML 5 ML VIAL (5 MG) ONE; Naloxone* 0.4 MG/ML 1 ML VIAL IV PRN; Neostigmine Methylsulfate* 1 MG/ML 10 ML VIAL (1 mg/ml) ONE; Ondansetron INJ* 2 MG/ML VIAL IV PRN; Ondansetron INJ* 2 MG/ML VIAL ONE; Propofol* 10 MG/ML 20 ML BTL ONE; Scopolamine 1.5 mg* PATCH ONE; ceFOXitin 2 GM IVPREMIX* 2 GM/50 ML BAG ONE; fentaNYL* 50 MCG/ML 2 ML VIAL (100 MCG VIAL) IV PRN; fentaNYL* 50 MCG/ML 2 ML VIAL (100 MCG VIAL) ONE
[2019-04-26] MEDS: Lactated Ringers 1000 ML Bag* 1,000 ML IV SCH ×2 (09:10→11:09)
[2019-04-26 13:49] VITALS: BP 128/63
--- NOTE | 2019-05-05 20:45 | OP ---
CC: Mary Addison MD * DATE OF OPERATION: 04/26/19 - SDS DATE OF : 75 SURGEON: Wilner Ladd MD. ASSISTANTS: JB Engle and Lorrie Chang NP. ANESTHESIOLOGIST: Dr. Hiram Sanderson. ANESTHESIA: General endotracheal. PRE-OP DIAGNOSIS: Symptomatic cholelithiasis. POST-OP DIAGNOSIS: Symptomatic cholelithiasis. OPERATIVE PROCEDURE: Laparoscopic cholecystectomy. ESTIMATED BLOOD LOSS: Minimal. IV FLUIDS: 1.55 L crystalloid. SPECIMEN: Gallbladder. DRAINS: None. COMPLICATIONS: None. COUNTS: The instrument, needle, and sponge counts were correct. DESCRIPTION OF PROCEDURE: The patient was brought to the operating room and placed on the table supine. Sequential compression devices were placed on both lower extremities. General anesthesia was administered. She was positioned and padded appropriately. She was prepped and draped in the usual sterile fashion and received appropriate intravenous antibiotics. After time-out was performed, local anesthetic was infiltrated into the skin and soft tissue prior to making each incision. Entry into the abdomen was through a transumbilical vertical incision using an open technique. After accessing the peritoneal cavity, carbon dioxide was insufflated to a pressure of 15 mmHg. Under direct visualization, 5-mm trocars were placed, 2 in the right upper quadrant and 1 in the subxiphoid position. The gallbladder was identified. There appeared to be no acute changes. The fundus was grasped and retracted cephalad. The infundibulum was grasped and the peritoneum investing the infundibulum was incised sharply and dissected free both medially and laterally. Dissection continued along the course of the cystic artery and cystic duct until critical view was obtained. Subsequently, both structures were doubly clipped and divided. The gallbladder was freed from attachments to the liver using the cautery and sharp dissection, staying in an avascular plane. Once the gallbladder was freed, it was placed into a retrieval bag and retrieved through the umbilical site. Hemostasis was assured. Clips were noted to be intact. The ports were removed under direct visualization and carbon dioxide was released. The umbilical incision was closed with 0 Vicryl in a [id number] fashion to approximate the fascia. Skin incisions were closed with 4-0 Monocryl in a subcuticular fashion. DermaFlex or Steri-Strips were applied. The patient tolerated the procedure well, was extubated uneventfully and transferred to Recovery stable. [id number]/[facility] #: [id number] EDMAR
== END | disposition home or self-care (01) ==
LOC: OR 07:46
PROVIDERS: ATTEND Surgery
DX: K80.10 Calculus of gallbladder with chronic cholecystitis without obstruction (principal); D68.51 Activated protein C resistance
CPT/HCPCS: 81025; 88304; A9270-GY; J0694; J1100; J1644; J1885; J2250; J2405; J2704; J2710; J3010; J3490

== ENCOUNTER 2019-07-17 18:57 | Emergency (ER) | payer BC ==
[2019-07-17 19:59] VITALS: BP 117/83
--- NOTE | 2019-07-17 20:14 | UC ---
Ear Complaint HPI - HPI Summary HPI Summary: 43-year-old woman comes in with a chief complaint of right ear pain. Started about 2 days ago. Minimal runny nose no sore throat no cough or chest congestion no fevers or chills. Has not been swimming. She does have more pain if she pulls down on the ear. - History of Current Complaint Chief Complaint: UCEar Stated Complaint: EARACHE Time Seen by Provider: 07/17/19 20:06 Hx Last Menstrual Period: 07/12/18 Pain Intensity: 1 - Allergies/Home Medications Allergies/Adverse Reactions: Allergies Allergy/AdvReac Type Severity Reaction Status Date / Time droperidol AdvReac See Comment Verified 07/17/19 19:59 Home Medications: Home Medications Mv-Min/Vit C/Glut/Lysine/Hb124 [Airborne Effervescent Tablet] 1 each PO PRN [History] PMH/Surg Hx/FS Hx/Imm Hx Previously Healthy: Yes - Surgical History Surgical History: Yes Surgery Procedure, Year, and Place: Pelvis fx repair 2001. Uterine polyp removal 2009. cholecystectomy - Family History Known Family History: Positive: Hypertension - Social History Alcohol Use: Rare Substance Use Type: None Smoking Status (MU): Never Smoked Tobacco - Immunization History Most Recent Influenza Vaccination: 04/19/2018 Most Recent Pneumonia Vaccination: never administered Review of Systems All Other Systems Reviewed And Are Negative: Yes Constitutional: Positive: Negative Skin: Positive: Negative Eyes: Positive: Negative ENT: Positive: Ear Ache, Nasal Discharge Respiratory: Positive: Negative Cardiovascular: Positive: Negative Gastrointestinal: Positive: Negative Motor: Positive: Negative Neurovascular: Positive: Negative Musculoskeletal: Positive: Negative Neurological: Positive: Negative Psychological: Positive: Negative Is Patient Immunocompromised?: No Physical Exam Triage Information Reviewed: Yes Appearance: Well-Appearing, No Pain Distress, Well-Nourished Vital Signs: Initial Vital Signs Temp 97.7 F 07/17/19 19:57 Pulse 61 07/17/19 19:57 Resp 16 07/17/19 19:57 BP 117/83 07/17/19 19:57 Pulse Ox 100 07/17/19 19:57 Vital Signs Reviewed: Yes Eye Exam: Normal Eyes: Positive: Conjunctiva Clear ENT: Positive: Pharynx normal, Other - Left TM is normal and there is no tenderness to palpation of the tragus. There is some tenderness with traction on the pinna of the right year. The ear canal is about half filled with cerumen. The TM behind the cerumen was unable to see is erythematous. Neck: Positive: Supple Respiratory: Positive: No respiratory distress Musculoskeletal: Positive: Strength Intact, ROM Intact Neurological: Positive: Alert, Muscle Tone Normal Psychological: Positive: Normal Response To Family, Age Appropriate Behavior Skin Exam: Normal Ear Complaint Course/Dx - Course Course Of Treatment: The right ear canal was irrigated by nursing and a large amount of cerumen did come out. When I looked at the TM again the superior portion is erythematous the rest appears normal. Because of the tenderness to traction on the pinna a will treat with ofloxacin 5 drops twice a day in the right ear. Also recommended any 10 the patient go swimming she should use swimmer ear drops to dry the ear canals. Patient is traveling to [place] in 2 days and I prescribed her Augmentin to be used if the ear drops did not completely resolve the symptoms. - Differential Dx/Diagnosis Provider Diagnosis: Impacted cerumen, right ear, Right otitis media, Right ear pain Discharge ED - Sign-Out/Discharge Documenting (check all that apply): Patient Departure All imaging exams completed and their final reports reviewed: No Studies - Discharge Plan Condition: Stable Disposition: HOME Prescriptions: Amoxicillin/Clavulanate TAB* [Augmentin TAB 875*] 875 mg PO BID #20 tab Ofloxacin 0.3% (Ear Drop)* [Floxin 0.3% OTIC.GALEN (Ear Drop)] 5 drop RIGHT EAR BID #1 btl Patient Education Materials: Otitis Externa (ED), Cerumen Impaction (ED), Earache (ED) Referrals: Mary Addison MD [Primary Care Provider] - Additional Instructions: FOLLOW UP WITH YOUR DOCTOR IF NOT COMPLETELY IMPROVED. GET REEVALUATED SOONER IF NOT IMPROVED OR WORSE OR ANY QUESTIONS OR CONCERNS. - Billing Disposition and Condition Condition: STABLE Disposition: Home
== END 2019-07-17 21:12 | disposition home or self-care (01) ==
LOC: UCEAST 18:57
DX: H92.01 Otalgia, right ear (principal); H66.91 Otitis media, unspecified, right ear; H61.21 Impacted cerumen, right ear; Z88.8 Allergy status to other drugs, medicaments and biological substances
CPT/HCPCS: 99213; G0463